=== PATIENT | female | born 1935 | race Caucasian/White ===

== ENCOUNTER → 2017-01-14 | Outpatient (CLI) | payer MEDICARE, OTHER ==
[2017-01-14 12:00] LABS: BUN/CREATININE RATIO 26 (0-10)
== END ==
LOC: CT 11:07
PROVIDERS: Family Medicine
DX: R10.9 Unspecified abdominal pain (principal); R31.9 Hematuria, unspecified; R30.0 Dysuria; N28.1 Cyst of kidney, acquired
CPT/HCPCS: 36415; 80048; 87086; J7050; Q9962